=== PATIENT | female | born 1950 | race Asian ===

== ENCOUNTER 2016-10-21 06:05 | Inpatient (IN) | payer MEDICAID, OTHER ==
[2016-10-21] VITALS (20 sets, daily range): BP systolic 103–143; BP diastolic 55–75; PULSE 55–88; RESP 15–20; Ht 157.5 cm; Wt 57.7 kg
[~2016-10-21] VITALS: Ht 157.5 cm; Wt 57.7 kg
[2016-10-21] MEDS ORDERED: CEFAZOLIN 1 GM INJ ONE (07:00)
--- NOTE | 2016-10-21 07:59 | HPN ---
Date/Time of Note Date/Time of Note DATE: 10/21/16 TIME: 07:59 Interval H&P Admission Note Pt. seen H&P reviewed: No system changes KAREN LAUGHLIN MD October 21, 2016 07:59
[2016-10-21] MEDS ORDERED: morphine SULFATE/PF (10 MG/10 ML) INJ ONE (08:05)
[2016-10-21] MEDS ORDERED: FENTAnyl 50 MCG/ML VIAL ONE (08:05)
[2016-10-21] MEDS ORDERED: KETOROLAC 30 MG INJ ONE (08:05)
[2016-10-21] MEDS ORDERED: ONDANSETRON 4 MG INJ ONE (08:05)
[2016-10-21] MEDS ORDERED: ROPIVACAINE 0.5 % 30 ML VIAL ONE (08:05)
[2016-10-21] MEDS ORDERED: MIDAZOLAM 1 MG/ML 2 ML INJ ONE (08:05)
[2016-10-21] MEDS ORDERED: PROPOFOL 100 ML ONE ×2 (08:05→10:48)
[2016-10-21] MEDS ORDERED: DEXAMETHASONE 4 MG/ML 1 ML INJ ONE (08:05)
[2016-10-21] MEDS ORDERED: TRANEXAMIC ACID 580 MG in SOD CHLORIDE 0.9% 100 ML IV ONE ×4 (09:00)
[2016-10-21] MEDS ORDERED: POLYMYXIN/BACITRACIN 1L IRRIG IRR ONE (09:07)
[2016-10-21] MEDS ORDERED: POLYMYXIN B 500000 UNIT INJ IRR ONE (09:08)
[2016-10-21] MEDS ORDERED: BACITRACIN 50000 UNITS INJ IRR ONE (09:08)
[2016-10-21] MEDS ORDERED: hydrALAzine 20 MG INJ IV PRN (09:30)
[2016-10-21] MEDS ORDERED: NALOXONE (0.4 MG/ML) INJ IV PRN ×2 (09:30→11:00)
[2016-10-21] MEDS ORDERED: LABETALOL HCL 20MG INJ IV PRN (09:30)
[2016-10-21] MEDS ORDERED: KETOROLAC 30 MG INJ IV PRN (09:30)
[2016-10-21] MEDS ORDERED: MIDAZOLAM 1 MG/ML 2 ML INJ IV PRN (09:30)
[2016-10-21] MEDS ORDERED: EPHEDrine SULFATE 50 MG/5 ML SYG IV PRN (09:30)
[2016-10-21] MEDS ORDERED: HYDROmorphONE (0.2 MG/ML) 10ML SYG IV PRN ×3 (09:30)
[2016-10-21] MEDS ORDERED: FENTAnyl 50 MCG/ML VIAL IV PRN ×3 (09:30)
[2016-10-21] MEDS ORDERED: DIPHENHYDRAMINE 50 MG INJ IV PRN ×2 (09:30)
[2016-10-21] MEDS ORDERED: ONDANSETRON 4 MG INJ IV PRN ×2 (09:30)
[2016-10-21] MEDS ORDERED: NALBUPHINE HCL (10 MG/1 ML) INJ IV PRN (09:30)
[2016-10-21] MEDS ORDERED: HYDROmorphONE 1 MG/ML SYG IV PRN ×2 (09:30)
[2016-10-21] MEDS ORDERED: TRIMETHOBENZAMIDE 100 MG/ML VIAL IM PRN ×2 (09:30)
[2016-10-21] MEDS ORDERED: ZOLPIDEM 5 MG TAB PO PRN (09:30)
[2016-10-21] MEDS ORDERED: MEPERIDINE 25 MG INJ IV PRN (09:30)
[2016-10-21] MEDS ORDERED: ALBUMIN HUMAN 5% 250 ML ONE (09:57)
[2016-10-21] MEDS ORDERED: MAGNESIUM HYDROXIDE 30ML CUP PO PRN (11:00)
[2016-10-21] MEDS ORDERED: SENNA/DOCUSATE NA (8.6MG/50MG) TAB PO PRN (11:00)
[2016-10-21] MEDS ORDERED: morphine 2 MG INJ IV PRN (11:00)
[2016-10-21] MEDS ORDERED: CEFAZOLIN 1 GM/50 ML (PMX) 50 ML IVPB ONE (11:18)
[2016-10-21] MEDS: CEFAZOLIN 1 GM/50 ML (PMX) 50 ML IVPB SCH ×2 (11:28→18:41)
--- NOTE | 2016-10-21 11:29 | OPR ---
DATE OF OPERATION: 10/21/2016 PREOPERATIVE DIAGNOSIS: Right knee osteoarthritis. POSTOPERATIVE DIAGNOSIS: Right knee osteoarthritis. PROCEDURE: Right total knee replacement. SURGEON: Gerardo Rojas MD SAMPLE SEWER: HOLLY Benz ANESTHESIA: Spinal anesthetic with an adductor canal block anesthesia. ESTIMATED BLOOD LOSS: 150 mL. IMPLANTS USED: Zainab Triathlon implants, femur size 2, tibia size 2, asymmetric 29 patella, and a 16 mm all polyethylene insert. INDICATIONS FOR PROCEDURE: Ms. Teodora Trivedi is a 65-year-old female who has had progressive pain in the right knee. She has failed nonoperative treatment and now presents for the above listed electi ve procedure. The risks and benefits were discussed with the patient, risks including, but not limi ian to infection, bleeding, blood clots, loosening, fracture or dislocation, knee stiffness, nerve d amage, blood vessel damage, along with other medical, anesthetic and surgical complications were dis cussed. Informed consent was obtained. DESCRIPTION OF PROCEDURE: The patient's correct extremity was identified in the preoperative area. She was brought back to the operating room where she had spinal anesthetic. She had sedation. She had a Luna catheter placed. All bony prominences were adequately padded. The right lower extremi ty was prepped and draped in standard sterile manner. A time out was performed. I did not use a to urniquet for this case. An anterior incision was used. I went through skin and subcutaneous tissue , made a medial parapatellar arthrotomy. I then obtained adequate hemostasis. I flexed the knee, m tay an entry hole in the distal femur, and put my distal femoral cutting guide in the distal 8 mm of the distal femur. I then marked for the secondary cutting guide at 3 degrees of external rotation and proceeded to make my anterior and posterior chamfer cuts. I then turned my attention to the tib ia using an extramedullary alignment guide and pinned it at the appropriate level. I made my tibial cut. I then checked the flexion and extension gaps, they were symmetric with a 16 insert. At this point, I trialed a size 2 femur, size 2 tibia, and a 16 insert. The knee went from full extension to full flexion with just a joggle, opening with varus and valgus stress. At this point, I turned m y attention to the patella. I checked the thickness of the patella. I used an over the top ____ cu tting guide, cut the patella to the appropriate thickness, and an asymmetric 29 patella was used. P EG holes were made. The patellar trial was put and patella tracked well without any external pressu re. I marked the rotation of the tibia. I made the peg holes through the femoral trial. I punched the tibia. I took out my trial components, thoroughly irrigated the bony surfaces, and dried them with a lap sponge. I then cemented a size 2 tibia and size 2 femur, and an asymmetric 29 patella. A trial insert was placed until the cement hardened. After the cement hardened, I took out the tria l insert, impacted a 60 mm all poly insert. I thoroughly irrigated the knee joint. The knee was co mpletely dry at the end of the case. I did not use a drain. The medial parapatellar arthrotomy was closed with #1 Vicryl, subcutaneous tissue with 2-0 Vicryl, skin with macario. The patient's foot was warm with a 2+ dorsalis pedis pulse at the end of the case. Dictated By: GERARDO ROJAS MD, RA/MIGUELANGEL Conf#: [id number] DID#: [id number]
[2016-10-21] MEDS ORDERED: DOCUSATE SODIUM 100 MG CAP PO ONE (11:30)
[2016-10-21 11:53] LABS: ADD SCAN DIFF NO
[2016-10-21 12:10] LABS: BASOPHILS % 0.4 % (0.0-2.0); EOSINOPHILS # 0.1 10^3/ul (0.0-0.5); EOSINOPHILS % 1.6 % (0.0-7.0); HEMOGLOBIN 9.4 g/dl (12.0-16.0); LYMPHOCYTES # 1.4 10^3/ul (0.8-2.9); LYMPHOCYTES % 20.6 % (15.0-51.0); MEAN CORPUSCULAR HEMOGLOBIN 25.8 pg (29.0-33.0); MEAN CORPUSCULAR HGB CONC 30.3 g/dl (32.0-37.0); MEAN CORPUSCULAR VOLUME 84.9 fl (82.0-101.0); MEAN PLATELET VOLUME 10.9 fl (7.4-10.4); MONOCYTE # 0.1 10^3/ul (0.3-0.9); MONOCYTES % 1.8 % (0.0-11.0); NEUTROPHIL # 5.1 10^3/ul (1.6-7.5); NEUTROPHILS % 74.7 % (39.0-77.0); PLATELET COUNT 207 10^3/UL (140-415); RED BLOOD COUNT 3.65 10^6/ul (4.20-5.40); RED CELL DISTRIBUTION WIDTH 13.5 % (11.5-14.5); WHITE BLOOD COUNT 6.8 10^3/ul (4.8-10.8)
--- NOTE | 2016-10-21 12:16 | RADRPT ---
PROCEDURE: XR Knee. CLINICAL INDICATION: Postoperative evaluation TECHNIQUE: 2 images of the right knee are available for review. COMPARISON: None available FINDINGS: There is a right knee total arthroplasty in anatomic alignment. There is anterior soft tissue swell ing and soft tissue gas with skin macario. There is no evidence of acute fracture. IMPRESSION: Recent right knee total arthroplasty as above. RPTAT: [facility] .Seth Scott MD, MD Date Time Electronically viewed and signed by .Seth Scott MD, on 10/21/2016 12:16 .K/
[2016-10-21 12:22] LABS: POTASSIUM 3.5 mmol/L (3.5-5.1)
[2016-10-21 12:24] LABS: CREATININE 0.68 mg/dl (0.44-1.00)
[2016-10-21 12:25] LABS: CALCIUM 8.2 mg/dl (8.4-10.2)
[2016-10-21] MEDS: ONDANSETRON 4 MG INJ IV SCH ×3 (12:47→22:36)
[2016-10-21] MEDS: SOD CHLORIDE 0.45% 1,000 ML IV SCH (16:56)
[2016-10-21] MEDS: ACETAMINOPHEN 500 MG TAB PO PRN (18:52)
[2016-10-22] VITALS: BP 113/61; PULSE 71; RESP 18
[2016-10-22] MEDS: CEFAZOLIN 1 GM/50 ML (PMX) 50 ML IVPB SCH (02:12)
--- NOTE | 2016-10-22 03:15 | HP ---
DATE OF ADMISSION: 10/21/2016 CHIEF COMPLAINT AND HISTORY OF PRESENT ILLNESS: The patient is a 65-year-old female with a known hi story of right knee osteoarthritis, failed conservative treatment, was seen by Dr. Rojas as an o utpatient and recommended surgery. The patient was admitted today and underwent right total knee re placement. The patient postoperatively did vomit twice but denies any abdominal pain, no reported c hest pain. No reported shortness of breath, no reported chest congestion. The patient is currently awake, alert, and feels that she is feeling better now. The patient does not have any fever or chi lls postoperative pain is well controlled. The patient is being admitted for further evaluation and management. PAST SURGICAL HISTORY: Patient is status post right knee surgery after she fell off a horse 40 year s ago. SOCIAL HISTORY: No smoking, no alcohol. FAMILY HISTORY: Noncontributory. MEDICATIONS PRIOR TO ADMISSION: 1. Tylenol. 2. Nonsteroidal anti-inflammatory medications. PHYSICAL EXAMINATION: GENERAL: The patient is conscious, awake, alert. VITAL SIGNS: Temperature 97.6, pulse 75, respirations 17, blood pressure 138/70, O2 saturation 98% on room air. HEENT: No eye discharge or redness. Extraocular movement intact. Oropharynx clear. NECK: No mass. CHEST: Fairly clear. CARDIOVASCULAR: S1, S2 normal. No murmur. ABDOMEN: Soft, nondistended, nontender. EXTREMITIES: No pedal edema. Pedal pulses palpable. SKIN: Without acute rash. NEUROLOGIC: The patient is awake, alert. LABORATORY DATA: Sodium 142, potassium 3.9, BUN 17, creatinine 0.8, glucose 92. Liver enzymes norm al. Coagulation profile normal. WBC 9.7, hemoglobin 11.5, platelet 272,000. EKG normal sinus rhyt hm. Chest x-ray clear. Preop chest x-ray unremarkable. IMPRESSION: Right knee osteoarthritis status post right total knee arthroplasty. PLAN: Patient admitted on medical floor. Patient will be given IV cefazolin q.8 hours x3 doses as per protocol. The patient will be given IV fluid and will be given Tylenol, oxycodone and IV morphi ne for pain control, depending upon the severity. The patient will have heparin for DVT prophylaxis . We will continue to follow her closely. Followup labs postoperatively revealed hemoglobin of 9.4 . Chemistry was unremarkable. Further postop Will continue to follow her from a medical sta ndpoint. Dictated By: MARIA FOWLER/MIGUELANGEL Conf#: [id number] DID#: [id number]
[2016-10-22 04:52] VITALS: BP 106/56; RESP 20
[2016-10-22] MEDS: ONDANSETRON 4 MG INJ IV SCH (05:00)
[2016-10-22 05:09] LABS: ADD SCAN DIFF NO
[2016-10-22 05:13] LABS: BASOPHILS % 0.1 % (0.0-2.0); EOSINOPHILS % 0.1 % (0.0-7.0); HEMATOCRIT 27.5 % (37.0-47.0); HEMOGLOBIN 8.8 g/dl (12.0-16.0); LYMPHOCYTES # 1.8 10^3/ul (0.8-2.9); LYMPHOCYTES % 16.1 % (15.0-51.0); MEAN CORPUSCULAR HEMOGLOBIN 26.3 pg (29.0-33.0); MEAN CORPUSCULAR VOLUME 82.1 fl (82.0-101.0); MEAN PLATELET VOLUME 10.9 fl (7.4-10.4); MONOCYTES % 8.6 % (0.0-11.0); NEUTROPHIL # 8.3 10^3/ul (1.6-7.5); NEUTROPHILS % 74.6 % (39.0-77.0); PLATELET COUNT 198 10^3/UL (140-415); RED BLOOD COUNT 3.35 10^6/ul (4.20-5.40); RED CELL DISTRIBUTION WIDTH 13.2 % (11.5-14.5); WHITE BLOOD COUNT 11.2 10^3/ul (4.8-10.8)
[2016-10-22 05:44] LABS: INR 1.09; PROTIME 14.1 Sec (12.2-14.2); PT RATIO 1.1
[2016-10-22 05:48] LABS: CALCIUM 8.7 mg/dl (8.4-10.2); CREATININE 0.75 mg/dl (0.44-1.00)
[2016-10-22] MEDS: SOD CHLORIDE 0.45% 1,000 ML IV SCH ×2 (06:34→19:10)
[2016-10-22 07:00] VITALS: BP 110/57; RESP 20
[2016-10-22] MEDS: ASPIRIN (EC) 325 MG TAB PO SCH (08:57)
[2016-10-22] MEDS: DOCUSATE SODIUM 100 MG CAP PO SCH ×2 (08:57→20:49)
--- NOTE | 2016-10-22 12:38 | PN ---
Date/Time of Note Date/Time of Note DATE: 10/22/16 TIME: 12:34 Assessment/Plan Lines/Catheters IV Catheter Type (from Nrsg): Peripheral IV Luna in Place (from Nrsg): Yes Assessment/Plan Assessment/Plan POD 1 s/p R TKA Stable Patient had nausea yesterday but she feels better now Pain control On Aspirin and SCD's for DVT prophylaxis PT for gait training and CPM re check H/H tomorrow. Discharge planning Subjective 24 Hr Interval Summary Had nausea and vomiting yesterday. Has cleared today. Worked with PT today. Exam/Review of Systems Vital Signs Vitals Vital Signs Date Time Temp Pulse Resp B/P Pulse Ox O2 Delivery O2 Flow Rate FiO2 10/22/16 07:00 98.5 63 20 110/57 98 10/22/16 00:00 Room Air 10/21/16 11:00 2.0 Intake and Output 10/21/16 10/21/16 10/22/16 15:00 23:00 07:00 Intake Total 3300 ml 675 ml 1200 ml Output Total 1000 ml 480 ml 2300 ml Balance 2300 ml 195 ml -1100 ml Exam Free Text/Dictation Right LE Thigh and calf soft and non tender Foot warm and well perfused. Intact motor and sensory function in foot Dressing c/d/i Results Result Diagram: 10/22/16 0438 10/22/16 0438 KAREN LAUGHLIN MD October 22, 2016 12:38
--- NOTE | 2016-10-22 12:40 | PDOCDIS ---
Discharge Instructions CONDITION Patient Condition: Good HOME CARE INSTRUCTIONS: Diet Instructions: RegularSpecial Diet: regular FOLLOW UP/APPOINTMENTS Appointments Dr. Karen Laughlin in 2 weeks OTHER ORDERS: Other Orders: CPM for home use. 0-90 degrees twice a day. Elevated toilet seat Front wheel walker KAREN LAUGHLIN MD October 22, 2016 12:40
[2016-10-22] MEDS: oxyCODONE 5 MG TAB PO PRN ×2 (13:42→19:18)
[2016-10-22 14:00] VITALS: BP 128/72; PULSE 74; RESP 18
--- NOTE | 2016-10-22 14:48 | PN ---
Date/Time of Note Date/Time of Note DATE: 10/22/16 TIME: 14:47 Assessment/Plan VTE Prophylaxis VTE Prophylaxis Intervention: other Lines/Catheters IV Catheter Type (from Nrsg): Peripheral IV Urinary Cath still in place: Yes Assessment/Plan Assessment/Plan Right knee osteoarthritis status post right total knee arthroplasty. Subjective 24 Hr Interval Summary Musculoskeletal: bone/joint pain Exam/Review of Systems Vital Signs Vitals Vital Signs Date Time Temp Pulse Resp B/P Pulse Ox O2 Delivery O2 Flow Rate FiO2 10/22/16 07:00 98.5 63 20 110/57 98 10/22/16 00:00 Room Air 10/21/16 11:00 2.0 Intake and Output 10/21/16 10/21/16 10/22/16 15:00 23:00 07:00 Intake Total 3300 ml 675 ml 1200 ml Output Total 1000 ml 480 ml 2300 ml Balance 2300 ml 195 ml -1100 ml Exam Respiratory: clear to auscultation Cardiovascular: nl pulses Gastrointestinal: non-tender, soft Musculoskeletal: nl extremities to inspection Extremities: normal pulses Neurological: nl speech Lymph: nontender Results Result Diagram: 10/22/16 0438 10/22/16 0438 Results 24 hrs Laboratory Tests Test 10/22/16 04:38 White Blood Count 11.2 #H Red Blood Count 3.35 L Hemoglobin 8.8 L Hematocrit 27.5 L Mean Corpuscular Volume 82.1 Mean Corpuscular Hemoglobin 26.3 L Mean Corpuscular Hemoglobin Concent 32.0 Red Cell Distribution Width 13.2 Platelet Count 198 Mean Platelet Volume 10.9 H Neutrophils % 74.6 Lymphocytes % 16.1 Monocytes % 8.6 Eosinophils % 0.1 Basophils % 0.1 Nucleated Red Blood Cells % 0.0 Neutrophils # 8.3 H Lymphocytes # 1.8 Monocytes # 1.0 H Eosinophils # 0.0 Basophils # 0.0 Nucleated Red Blood Cells # 0.0 Prothrombin Time 14.1 Prothrombin Time Ratio 1.1 INR International Normalized Ratio 1.09 Sodium Level 138 Potassium Level 4.0 Chloride Level 106 Carbon Dioxide Level 27 Anion Gap 9 Blood Urea Nitrogen 9 Creatinine 0.75 Glucose Level 117 Calcium Level 8.7 Medications Medications Current Medications Oxycodone HCl (Roxicodone) 10 mg Q3H PRN PO PAIN LEVEL 4-7; Start 10/21/16 at 11:00 Oxycodone HCl (Roxicodone) 5 mg Q3H PRN PO PAIN LEVEL 1-3 Last administered on 10/22/16 13:42; Admin Dose 5 MG; Start 10/21/16 at 11:00 Aspirin (Ecotrin) 325 mg AM PO Last administered on 10/22/16 08:57; Admin Dose 325 MG; Start 10/22/16 at 09:00 Docusate Sodium (Colace) 200 mg BID PO Last administered on 10/22/16 08:57; Admin Dose 200 MG; Start 10/22/16 at 09:00; Stop 10/25/16 at 08:59 Senna/Docusate Sodium (Senokot-S) 2 tab BID PRN PO CONSTIPATION; Start at 11:00 Magnesium Hydroxide (Milk Of Mag) 30 ml HS PRN PO CONSTIPATION; Start 10/21/16 at 11:00 Naloxone HCl (Narcan) 0.2 mg Q2M PRN IV DECREASED REPIRATORY RATE; Start at 11:00 Morphine Sulfate 2 mg 2 mg Q2H PRN IV PAIN; Start 10/21/16 at 11:00 Sodium Chloride (1/2 NS) 1,000 ml @ 75 mls/hr [id number] IV Last administered on 10/22/16 06:34; Admin Dose 75 MLS/HR; Start 10/21/16 at 16:30 Acetaminophen (Tylenol Tab) 500 mg Q4H PRN PO PAIN AND OR ELEVATED TEMP Last administered on 10/21/16 18:52; Admin Dose 500 MG; Start 10/21/16 at 18:00 CARMELO FRIAS October 22, 2016 14:48
[2016-10-22 19:43] VITALS: BP 140/90; PULSE 90; RESP 18
[2016-10-23] MEDS: ACETAMINOPHEN 500 MG TAB PO PRN (05:26)
[2016-10-23 08:18] VITALS: BP 126/81; RESP 16
[2016-10-23] MEDS: SOD CHLORIDE 0.45% 1,000 ML IV SCH ×2 (08:30→21:50)
[2016-10-23 09:07] LABS: ADD SCAN DIFF NO
[2016-10-23 09:12] LABS: BASOPHIL # 0.1 10^3/ul (0.0-0.1); BASOPHILS % 0.4 % (0.0-2.0); EOSINOPHILS # 0.1 10^3/ul (0.0-0.5); EOSINOPHILS % 0.4 % (0.0-7.0); HEMATOCRIT 31.9 % (37.0-47.0); LYMPHOCYTES # 2.4 10^3/ul (0.8-2.9); LYMPHOCYTES % 19.1 % (15.0-51.0); MEAN CORPUSCULAR HEMOGLOBIN 25.4 pg (29.0-33.0); MEAN CORPUSCULAR HGB CONC 31.3 g/dl (32.0-37.0); MEAN CORPUSCULAR VOLUME 81.2 fl (82.0-101.0); MEAN PLATELET VOLUME 10.9 fl (7.4-10.4); MONOCYTE # 1.2 10^3/ul (0.3-0.9); MONOCYTES % 9.8 % (0.0-11.0); NEUTROPHIL # 8.7 10^3/ul (1.6-7.5); NEUTROPHILS % 69.8 % (39.0-77.0); PLATELET COUNT 226 10^3/UL (140-415); RED BLOOD COUNT 3.93 10^6/ul (4.20-5.40); RED CELL DISTRIBUTION WIDTH 13.3 % (11.5-14.5); WHITE BLOOD COUNT 12.5 10^3/ul (4.8-10.8)
[2016-10-23 09:30] LABS: INR 1.12; PROTIME 14.4 Sec (12.2-14.2); PT RATIO 1.1
[2016-10-23 09:37] LABS: POTASSIUM 3.1 mmol/L (3.5-5.1)
[2016-10-23 09:39] LABS: CREATININE 0.66 mg/dl (0.44-1.00)
[2016-10-23 09:40] LABS: CALCIUM 8.7 mg/dl (8.4-10.2)
[2016-10-23] MEDS: ASPIRIN (EC) 325 MG TAB PO SCH (09:48)
[2016-10-23] MEDS: DOCUSATE SODIUM 100 MG CAP PO SCH ×2 (09:48→20:25)
[2016-10-23] MEDS: oxyCODONE 5 MG TAB PO PRN ×2 (12:50→20:25)
--- NOTE | 2016-10-23 16:33 | PN ---
Date/Time of Note Date/Time of Note DATE: 10/23/16 TIME: 16:30 Assessment/Plan Lines/Catheters IV Catheter Type (from Nrsg): Saline Lock Urinary Cath still in place: Yes Assessment/Plan Assessment/Plan - Right knee osteoarthritis - status post right total knee arthroplasty. YOHANA Gudino Subjective 24 Hr Interval Summary Respiratory: no complaints Cardiovascular: no complaints Gastrointestinal: no complaints Musculoskeletal: no complaints Skin: no complaints Exam/Review of Systems Vital Signs Vitals Vital Signs Date Time Temp Pulse Resp B/P Pulse Ox O2 Delivery O2 Flow Rate FiO2 10/23/16 08:18 99.0 75 16 126/81 99 10/22/16 19:43 Room Air 10/21/16 11:00 2.0 Intake and Output 10/22/16 10/22/16 10/23/16 14:59 22:59 06:59 Intake Total 2150 ml Output Total 1200 ml Balance 950 ml Exam Constitutional: alert Respiratory: clear to auscultation Cardiovascular: nl pulses Gastrointestinal: non-tender, soft Musculoskeletal: other Results Result Diagram: 10/23/16 0830 10/23/16 0830 Results 24 hrs Laboratory Tests Test 10/23/16 08:30 White Blood Count 12.5 H Red Blood Count 3.93 L Hemoglobin 10.0 L Hematocrit 31.9 L Mean Corpuscular Volume 81.2 L Mean Corpuscular Hemoglobin 25.4 L Mean Corpuscular Hemoglobin Concent 31.3 L Red Cell Distribution Width 13.3 Platelet Count 226 Mean Platelet Volume 10.9 H Neutrophils % 69.8 Lymphocytes % 19.1 Monocytes % 9.8 Eosinophils % 0.4 Basophils % 0.4 Nucleated Red Blood Cells % 0.0 Neutrophils # 8.7 H Lymphocytes # 2.4 Monocytes # 1.2 H Eosinophils # 0.1 Basophils # 0.1 Nucleated Red Blood Cells # 0.0 Prothrombin Time 14.4 H Prothrombin Time Ratio 1.1 INR International Normalized Ratio 1.12 Sodium Level 132 L Potassium Level 3.1 L Chloride Level 93 #L Carbon Dioxide Level 28 Anion Gap 14 Blood Urea Nitrogen 5 L Creatinine 0.66 Glucose Level 116 Calcium Level 8.7 Medications Medications Current Medications Oxycodone HCl (Roxicodone) 10 mg Q3H PRN PO PAIN LEVEL 4-7 Last administered on 10/22/16t 19:18; Admin Dose 10 MG; Start 10/21/16 at 11:00 Oxycodone HCl (Roxicodone) 5 mg Q3H PRN PO PAIN LEVEL 1-3 Last administered on 10/23/16 12:50; Admin Dose 5 MG; Start 10/21/16 at 11:00 Aspirin (Ecotrin) 325 mg AM PO Last administered on 10/23/16 09:48; Admin Dose 325 MG; Start 10/22/16 at 09:00 Docusate Sodium (Colace) 200 mg BID PO Last administered on 10/23/16 09:48; Admin Dose 200 MG; Start 10/22/16 at 09:00; Stop 10/25/16 at 08:59 Senna/Docusate Sodium (Senokot-S) 2 tab BID PRN PO CONSTIPATION; Start at 11:00 Magnesium Hydroxide (Milk Of Mag) 30 ml HS PRN PO CONSTIPATION; Start 10/21/16 at 11:00 Naloxone HCl (Narcan) 0.2 mg Q2M PRN IV DECREASED REPIRATORY RATE; Start at 11:00 Morphine Sulfate 2 mg 2 mg Q2H PRN IV PAIN; Start 10/21/16 at 11:00 Sodium Chloride (1/2 NS) 1,000 ml @ 75 mls/hr [id number] IV Last administered on 10/22/16 06:34; Admin Dose 75 MLS/HR; Start 10/21/16 at 16:30 Acetaminophen (Tylenol Tab) 500 mg Q4H PRN PO PAIN AND OR ELEVATED TEMP Last administered on 10/23/16 05:26; Admin Dose 500 MG; Start 10/21/16 at 18:00 CARMELO FRIAS October 23, 2016 16:33
[2016-10-23 20:01] VITALS: BP 130/58; RESP 18
[2016-10-23] MEDS ORDERED: POTASSIUM CHLORIDE (SR) 20 MEQ TAB PO STA (20:09)
[2016-10-24] MEDS: ACETAMINOPHEN 500 MG TAB PO PRN ×2 (00:50→05:40)
[2016-10-24] MEDS: oxyCODONE 5 MG TAB PO PRN ×3 (00:50→21:04)
[2016-10-24 05:04] LABS: ADD SCAN DIFF NO
[2016-10-24 05:09] LABS: BASOPHIL # 0.1 10^3/ul (0.0-0.1); BASOPHILS % 0.5 % (0.0-2.0); EOSINOPHILS # 0.2 10^3/ul (0.0-0.5); EOSINOPHILS % 2.2 % (0.0-7.0); HEMATOCRIT 29.5 % (37.0-47.0); HEMOGLOBIN 9.3 g/dl (12.0-16.0); LYMPHOCYTES # 3.3 10^3/ul (0.8-2.9); LYMPHOCYTES % 29.8 % (15.0-51.0); MEAN CORPUSCULAR HEMOGLOBIN 25.5 pg (29.0-33.0); MEAN CORPUSCULAR HGB CONC 31.5 g/dl (32.0-37.0); MEAN CORPUSCULAR VOLUME 80.8 fl (82.0-101.0); MEAN PLATELET VOLUME 10.9 fl (7.4-10.4); MONOCYTE # 1.1 10^3/ul (0.3-0.9); MONOCYTES % 10.3 % (0.0-11.0); NEUTROPHIL # 6.3 10^3/ul (1.6-7.5); PLATELET COUNT 217 10^3/UL (140-415); RED BLOOD COUNT 3.65 10^6/ul (4.20-5.40); RED CELL DISTRIBUTION WIDTH 13.5 % (11.5-14.5); WHITE BLOOD COUNT 11.1 10^3/ul (4.8-10.8)
[2016-10-24 05:20] LABS: POTASSIUM 3.7 mmol/L (3.5-5.1)
[2016-10-24 05:22] LABS: CREATININE 0.72 mg/dl (0.44-1.00)
[2016-10-24 05:23] LABS: CALCIUM 8.4 mg/dl (8.4-10.2)
[2016-10-24 08:31] VITALS: BP 112/58; RESP 16
[2016-10-24 08:34] VITALS: BP 137/61; RESP 20
[2016-10-24] MEDS: ASPIRIN (EC) 325 MG TAB PO SCH (09:27)
[2016-10-24] MEDS: DOCUSATE SODIUM 100 MG CAP PO SCH ×2 (09:27→21:03)
--- NOTE | 2016-10-24 10:07 | PN ---
Date/Time of Note Date/Time of Note DATE: 10/24/16 TIME: 10:06 Assessment/Plan Lines/Catheters IV Catheter Type (from Nrs): Saline Lock Luna in Place (from Nrsg): Yes Assessment/Plan Assessment/Plan POD 3 Has had low grade temps. Probably atelectasis. Patient not using IS. Will instruct on use. Continue CPM, Gait training with PT Aspirin and SCDs for DVT prophylaxis Discharge planning, home today. Subjective 24 Hr Interval Summary No complaints. Exam/Review of Systems Vital Signs Vitals Vital Signs Date Time Temp Pulse Resp B/P Pulse Ox O2 Delivery O2 Flow Rate FiO2 10/24/16 08:34 98.4 82 20 137/61 95 10/22/16 19:43 Room Air 10/21/16 11:00 2.0 Intake and Output 10/23/16 10/23/16 10/24/16 15:00 23:00 07:00 Intake Total 820 ml 900 ml Output Total 650 ml Balance 170 ml 900 ml Exam Free Text/Dictation R Knee Incision c/d/i. No erythema Calf soft and non tender Foot warm and well perfused. Results Result Diagram: 10/24/16 0425 10/24/16 0425 KAREN LAUGHLIN MD October 24, 2016 10:07
[2016-10-24] MEDS: SOD CHLORIDE 0.45% 1,000 ML IV SCH (11:10)
[2016-10-24] MEDS ORDERED: SOD CHLORIDE 0.9% 1,000 ML IV SCH (12:00)
--- NOTE | 2016-10-24 12:52 | RADRPT ---
PROCEDURE: Chest Radiograph. CLINICAL INDICATION: Cough. TECHNIQUE: Single frontal chest radiograph. COMPARISON: None available FINDINGS: The cardiomediastinal silhouette is within normal limits. No infiltrate or effusion is seen. Th e bones are intact. IMPRESSION: 1. Unremarkable chest radiograph. RPTAT: KK .Raza Poon MD, MD Date Time Electronically viewed and signed by .Raza Poon MD, on 10/24/2016 12:52 .B/
[2016-10-24 13:31] LABS: ADD UMIC NO; URINE BILIRUBIN (Dip) NEGATIVE (NEGATIVE); URINE BLOOD (Dip) NEGATIVE (NEGATIVE); URINE COLOR LT. YELLOW (YELLOW); URINE GLUCOSE (Dip) NEGATIVE (NEGATIVE); URINE KETONES (Dip) NEGATIVE (NEGATIVE); URINE LEUKOCYTE ESTERASE (Dip) NEGATIVE (NEGATIVE); URINE NITRITE (Dip) NEGATIVE (NEGATIVE); URINE TOTAL PROTEIN (Dip) NEGATIVE (NEGATIVE); URINE UROBILINOGEN (Dip) 0.2 E.U./dL (0.1-1.0)
--- NOTE | 2016-10-24 18:25 | PN ---
Date/Time of Note Date/Time of Note DATE: 10/24/16 TIME: 18:21 Assessment/Plan VTE Prophylaxis VTE Prophylaxis Intervention: SCD's Lines/Catheters IV Catheter Type (from Nrsg): Saline Lock Central line still needed: Yes Urinary Cath still in place: No Assessment/Plan Assessment/Plan - Right knee osteoarthritis, status post right total knee arthroplasty. Continue physical therapy. Acute rehab evaluation. - Mild hyponatremia, continue IV fluids. Patient's condition and plan of care was discussed with patient's son at the bedside. Further recommendations based on clinical course. Plan of care discussed with Dr. Gudino. Subjective 24 Hr Interval Summary Free Text/Dictation Patient's feel very anxious to walk with physical therapy, tolerates CPM well, continue pain control, continue physical therapy. Exam/Review of Systems Vital Signs Vitals Vital Signs Date Time Temp Pulse Resp B/P Pulse Ox O2 Delivery O2 Flow Rate FiO2 10/24/16 08:34 98.4 82 20 137/61 95 10/22/16 19:43 Room Air 10/21/16 11:00 2.0 Intake and Output 10/23/16 10/23/16 10/24/16 15:00 23:00 07:00 Intake Total 820 ml 900 ml Output Total 650 ml Balance 170 ml 900 ml Exam Constitutional: alert, oriented Psych: anxiety, no complaints Head: atraumatic, normocephalic Eyes: nl conjunctiva ENMT: nl external ears & nose Neck: non-tender, supple Respiratory: clear to auscultation, normal air movement Cardiovascular: nl pulses, regular rate and rhythm Gastrointestinal: non-tender, soft Musculoskeletal: other (Right knee status post surgery) Extremities: normal pulses 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 intact Results Result Diagram: 10/24/16 0425 10/24/16 0425 Results 24 hrs Laboratory Tests Test 10/24/16 04:25 10/24/16 13:10 White Blood Count 11.1 H Red Blood Count 3.65 L Hemoglobin 9.3 L Hematocrit 29.5 L Mean Corpuscular Volume 80.8 L Mean Corpuscular Hemoglobin 25.5 L Mean Corpuscular Hemoglobin Concent 31.5 L Red Cell Distribution Width 13.5 Platelet Count 217 Mean Platelet Volume 10.9 H Neutrophils % 57.0 Lymphocytes % 29.8 Monocytes % 10.3 Eosinophils % 2.2 Basophils % 0.5 Nucleated Red Blood Cells % 0.0 Neutrophils # 6.3 Lymphocytes # 3.3 H Monocytes # 1.1 H Eosinophils # 0.2 Basophils # 0.1 Nucleated Red Blood Cells # 0.0 Sodium Level 129 L Potassium Level 3.7 Chloride Level 95 L Carbon Dioxide Level 25 Anion Gap 13 Blood Urea Nitrogen 8 Creatinine 0.72 Glucose Level 122 Calcium Level 8.4 Urine Color LT. YELLOW Urine Clarity CLEAR Urine pH 6.5 Urine Specific [place] <=1.005 L Urine Ketones NEGATIVE Urine Nitrite NEGATIVE Urine Bilirubin NEGATIVE Urine Urobilinogen 0.2 E.U./dL Urine Leukocyte Esterase NEGATIVE Urine Hemoglobin NEGATIVE Urine Glucose NEGATIVE Urine Total Protein NEGATIVE Medications Medications Current Medications Oxycodone HCl (Roxicodone) 10 mg Q3H PRN PO PAIN LEVEL 4-7 Last administered on 10/24/16 00:50; Admin Dose 10 MG; Start 10/21/16 at 11:00 Oxycodone HCl (Roxicodone) 5 mg Q3H PRN PO PAIN LEVEL 1-3 Last administered on 10/24/16 09:29; Admin Dose 5 MG; Start 10/21/16 at 11:00 Aspirin (Ecotrin) 325 mg AM PO Last administered on 10/24/16 09:27; Admin Dose 325 MG; Start 10/22/16 at 09:00 Docusate Sodium (Colace) 200 mg BID PO Last administered on 10/24/16 09:27; Admin Dose 200 MG; Start 10/22/16 at 09:00; Stop 10/25/16 at 08:59 Senna/Docusate Sodium (Senokot-S) 2 tab BID PRN PO CONSTIPATION; Start at 11:00 Magnesium Hydroxide (Milk Of Mag) 30 ml HS PRN PO CONSTIPATION Last administered on 10/24/16 05:33; Admin Dose 30 ML; Start 10/21/16 at 11:00 Naloxone HCl (Narcan) 0.2 mg Q2M PRN IV DECREASED REPIRATORY RATE; Start at 11:00 Morphine Sulfate 2 mg 2 mg Q2H PRN IV PAIN; Start 10/21/16 at 11:00 Sodium Chloride (1/2 NS) 1,000 ml @ 75 mls/hr [id number] IV Last administered on 10/22/16 06:34; Admin Dose 75 MLS/HR; Start 10/21/16 at 16:30 Acetaminophen 500 mg 500 mg Q4H PRN PO PAIN AND OR ELEVATED TEMP Last administered on 10/24/16 05:40; Admin Dose 500 MG; Start 10/21/16 at 18:00 Sodium Chloride (NS) 1,000 ml @ 100 mls/hr Q10H IV Last administered on 12:30; Admin Dose 100 MLS/HR; Start 10/24/16 at 12:00; Stop 10/24/16 at 20: 30 ANTONIA DUMAS October 24, 2016 18:25
[2016-10-24 21:01] VITALS: BP 129/61; RESP 17
[2016-10-25] MEDS: oxyCODONE 5 MG TAB PO PRN (05:40)
[2016-10-25 05:49] LABS: ADD SCAN DIFF NO
[2016-10-25 05:58] LABS: BASOPHIL # 0.1 10^3/ul (0.0-0.1); BASOPHILS % 0.7 % (0.0-2.0); EOSINOPHILS # 0.3 10^3/ul (0.0-0.5); EOSINOPHILS % 3.9 % (0.0-7.0); HEMATOCRIT 29.7 % (37.0-47.0); HEMOGLOBIN 9.5 g/dl (12.0-16.0); LYMPHOCYTES # 2.6 10^3/ul (0.8-2.9); MEAN CORPUSCULAR HEMOGLOBIN 26.5 pg (29.0-33.0); MEAN CORPUSCULAR VOLUME 82.7 fl (82.0-101.0); MEAN PLATELET VOLUME 10.8 fl (7.4-10.4); MONOCYTE # 0.8 10^3/ul (0.3-0.9); MONOCYTES % 9.6 % (0.0-11.0); NEUTROPHIL # 4.8 10^3/ul (1.6-7.5); NEUTROPHILS % 55.3 % (39.0-77.0); PLATELET COUNT 238 10^3/UL (140-415); RED BLOOD COUNT 3.59 10^6/ul (4.20-5.40); RED CELL DISTRIBUTION WIDTH 13.5 % (11.5-14.5); WHITE BLOOD COUNT 8.7 10^3/ul (4.8-10.8)
[2016-10-25 06:04] LABS: POTASSIUM 4.2 mmol/L (3.5-5.1)
[2016-10-25 06:07] LABS: CREATININE 0.69 mg/dl (0.44-1.00)
[2016-10-25 06:08] LABS: CALCIUM 8.4 mg/dl (8.4-10.2)
[2016-10-25 08:23] VITALS: BP 106/58; RESP 16
[2016-10-25] MEDS: ASPIRIN (EC) 325 MG TAB PO SCH (09:55)
[2016-10-25] MEDS: ACETAMINOPHEN 500 MG TAB PO PRN (10:52)
--- NOTE | 2016-10-25 16:28 | PN ---
Date/Time of Note Date/Time of Note DATE: 10/25/16 TIME: 16:24 Assessment/Plan VTE Prophylaxis VTE Prophylaxis Intervention: SCD's Lines/Catheters IV Catheter Type (from Nrs): Peripheral IV Urinary Cath still in place: No Assessment/Plan Chief Complaint/Hosp Course Patient was able to to make some progress with physical therapy, however still has unsteady gait, pain is adequately controlled, continue physical therapy. Assessment/Plan - Right knee osteoarthritis, status post right total knee arthroplasty. Continue physical therapy. Continue Ecotrin and pain medication as needed. Pending acute rehab evaluation Further recommendations based on clinical course. Plan of care discussed with Dr. Gudino. Problems: Exam/Review of Systems Vital Signs Vitals Vital Signs Date Time Temp Pulse Resp B/P Pulse Ox O2 Delivery O2 Flow Rate FiO2 10/25/16 08:23 98.5 72 16 106/58 95 10/22/16 19:43 Room Air 10/21/16 11:00 2.0 Intake and Output 10/24/16 10/24/16 10/25/16 15:00 23:00 07:00 Intake Total 400 ml 1300 ml Balance 400 ml 1300 ml Exam Constitutional: alert, oriented Psych: anxiety, no complaints Head: atraumatic, normocephalic Eyes: nl conjunctiva ENMT: nl external ears & nose Neck: non-tender, supple Respiratory: clear to auscultation, normal air movement Cardiovascular: nl pulses, regular rate and rhythm Gastrointestinal: non-tender, soft Musculoskeletal: other (Right knee status post surgery) Extremities: normal pulses Neurological: 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 intact Results Result Diagram: 10/25/16 0445 10/25/16444 Results 24 hrs Laboratory Tests Test 10/25/16 04:45 White Blood Count 8.7 # Red Blood Count 3.59 L Hemoglobin 9.5 L Hematocrit 29.7 L Mean Corpuscular Volume 82.7 Mean Corpuscular Hemoglobin 26.5 L Mean Corpuscular Hemoglobin Concent 32.0 Red Cell Distribution Width 13.5 Platelet Count 238 Mean Platelet Volume 10.8 H Neutrophils % 55.3 Lymphocytes % 30.0 Monocytes % 9.6 Eosinophils % 3.9 Basophils % 0.7 Nucleated Red Blood Cells % 0.0 Neutrophils # 4.8 Lymphocytes # 2.6 Monocytes # 0.8 Eosinophils # 0.3 Basophils # 0.1 Nucleated Red Blood Cells # 0.0 Sodium Level 140 Potassium Level 4.2 Chloride Level 104 Carbon Dioxide Level 28 Anion Gap 12 Blood Urea Nitrogen 8 Creatinine 0.69 Glucose Level 109 Calcium Level 8.4 Medications Medications Current Medications Oxycodone HCl (Roxicodone) 10 mg Q3H PRN PO PAIN LEVEL 4-7 Last administered on 10/25/16 05:40; Admin Dose 10 MG; Start 10/21/16 at 11:00 Oxycodone HCl (Roxicodone) 5 mg Q3H PRN PO PAIN LEVEL 1-3 Last administered on 10/24/16 09:29; Admin Dose 5 MG; Start 10/21/16 at 11:00 Aspirin (Ecotrin) 325 mg AM PO Last administered on 10/25/16 09:55; Admin Dose 325 MG; Start 10/22/16 at 09:00 Senna/Docusate Sodium (Senokot-S) 2 tab BID PRN PO CONSTIPATION; Start at 11:00 Magnesium Hydroxide (Milk Of Mag) 30 ml HS PRN PO CONSTIPATION Last administered on 10/24/16 05:33; Admin Dose 30 ML; Start 10/21/16 at 11:00 Naloxone HCl (Narcan) 0.2 mg Q2M PRN IV DECREASED REPIRATORY RATE; Start at 11:00 Morphine Sulfate (morphine) 2 mg Q2H PRN IV PAIN; Start 10/21/16 at 11:00 Acetaminophen (Tylenol Tab) 500 mg Q4H PRN PO PAIN AND OR ELEVATED TEMP Last administered on 10/25/16 10:52; Admin Dose 500 MG; Start 10/21/16 at 18:00 ANTONIA DUMAS October 25, 2016 16:27
[2016-10-25 20:40] VITALS: BP 141/62; RESP 20
[2016-10-26] MEDS: ACETAMINOPHEN 500 MG TAB PO PRN (00:21)
[2016-10-26 05:56] LABS: ADD SCAN DIFF NO
[2016-10-26 06:04] LABS: BASOPHIL # 0.1 10^3/ul (0.0-0.1); BASOPHILS % 0.7 % (0.0-2.0); EOSINOPHILS # 0.6 10^3/ul (0.0-0.5); EOSINOPHILS % 6.2 % (0.0-7.0); HEMATOCRIT 30.3 % (37.0-47.0); HEMOGLOBIN 9.7 g/dl (12.0-16.0); LYMPHOCYTES # 3.2 10^3/ul (0.8-2.9); LYMPHOCYTES % 35.3 % (15.0-51.0); MEAN CORPUSCULAR HEMOGLOBIN 26.4 pg (29.0-33.0); MEAN CORPUSCULAR VOLUME 82.3 fl (82.0-101.0); MEAN PLATELET VOLUME 10.2 fl (7.4-10.4); MONOCYTE # 0.7 10^3/ul (0.3-0.9); NEUTROPHIL # 4.5 10^3/ul (1.6-7.5); NEUTROPHILS % 49.4 % (39.0-77.0); PLATELET COUNT 292 10^3/UL (140-415); RED BLOOD COUNT 3.68 10^6/ul (4.20-5.40); RED CELL DISTRIBUTION WIDTH 13.9 % (11.5-14.5)
[2016-10-26 06:32] LABS: POTASSIUM 3.9 mmol/L (3.5-5.1)
[2016-10-26 06:34] LABS: CREATININE 0.61 mg/dl (0.44-1.00)
[2016-10-26 06:35] LABS: CALCIUM 8.7 mg/dl (8.4-10.2)
[2016-10-26 07:50] VITALS: BP 140/81; RESP 19
[2016-10-26] MEDS: ASPIRIN (EC) 325 MG TAB PO SCH (09:59)
--- NOTE | 2016-10-26 12:59 | PN ---
Date/Time of Note Date/Time of Note DATE: 10/26/16 TIME: 12:59 Assessment/Plan Lines/Catheters IV Catheter Type (from Nrs): Saline Lock Luna in Place (from Nrs): No Assessment/Plan Assessment/Plan Patient not progressing well with PT. Recommend consider short Acute Rehab Stay. Exam/Review of Systems Vital Signs Vitals Vital Signs Date Time Temp Pulse Resp B/P Pulse Ox O2 Delivery O2 Flow Rate FiO2 10/26/16 07:50 98.0 76 19 140/81 98 10/22/16 19:43 Room Air Intake and Output 10/25/16 10/25/16 10/26/16 15:00 23:00 07:00 Intake Total 600 ml 640 ml Output Total 400 ml 620 ml Balance 200 ml 20 ml Results Result Diagram: 10/26/16 0450 10/26/16 0450 KAREN LAUGHLIN MD October 26, 2016 12:59
[2016-10-26] MEDS: oxyCODONE 5 MG TAB PO PRN (15:21)
--- NOTE | 2016-10-26 15:58 | PN ---
DATE: 10/26/2016 SUBJECTIVE: Follow up on right knee osteoarthritis status post right total knee arthroplasty. The patient is not progressing well with physical therapy. The patient sometimes does not bear weight o n her feet and also has been feeling depressed. The patient also has been tearful, and I got some m ore history from the patient's son, and Dr. Trivedi. According to him, the patient does have history o f paranoid delusion and depression and in the past has responded well to Zyprexa 2.5 mg b.i.d. The patient did not have any chest pain or shortness of breath. OBJECTIVE: VITAL SIGNS: Stable, afebrile. NECK: No mass. CHEST: Fairly clear. CARDIOVASCULAR: S1, S2 normal. No murmur. ABDOMEN: Soft, nondistended, nontender. EXTREMITIES: No ankle edema. Pedal pulses palpable. SKIN: Without acute rash. LABORATORY DATA: WBC 9, hemoglobin 9.7, platelets 292. Sodium 138, potassium 3.9, BUN 9, creatinin e 0.6. IMPRESSION: 1. Right knee osteoarthritis status post total knee replacement. 2. Depression with paranoid delusion. PLAN: We will start the patient on Zyprexa 2.5 b.i.d. The patient would benefit from acute rehabil itation as she is likely to get more depressed in residential facility and may not participate i n physical therapy at all. The patient has agreed to go to acute rehabilitation, and from there, th e patient will be discharged home. The patient, prior to her surgery, was independent in her ADLs. Dictated By: MARIA FOWLER/MIGUELANGEL Conf#: [id number] DID#: [id number]
[2016-10-26] MEDS ORDERED: OLANZAPINE 2.5 MG TAB PO SCH (16:30)
[2016-10-26] MEDS: OLANZAPINE 2.5 MG TAB PO SCH (20:51)
[2016-10-26 21:13] VITALS: BP 125/58; RESP 20
[2016-10-26] MEDS ORDERED: ZOLPIDEM 5 MG TAB PO PRN (23:00)
[2016-10-27 08:11] VITALS: BP 128/76; RESP 18
[2016-10-27] MEDS: ASPIRIN (EC) 325 MG TAB PO SCH (09:22)
[2016-10-27] MEDS: OLANZAPINE 2.5 MG TAB PO SCH ×2 (09:23→21:05)
[2016-10-27] MEDS: oxyCODONE 5 MG TAB PO PRN (12:43)
--- NOTE | 2016-10-27 16:32 | PN ---
Date/Time of Note Date/Time of Note DATE: 10/27/16 TIME: 16:32 Assessment/Plan VTE Prophylaxis VTE Prophylaxis Intervention: other Lines/Catheters IV [facility]ter Type [facility]from [facility] Saline Lock Urinary Cath still in place: No Assessment/Plan Assessment/Plan 1. Right knee osteoarthritis status post total knee replacement. 2. Depression with paranoid delusion. Exam/Review of Systems Vital Signs Vitals Vital Signs Date Time Temp Pulse Resp B/P Pulse Ox O2 Delivery O2 Flow Rate FiO2 10/27/16 08:11 98.0 70 18 128/76 96 Intake and Output 10/26/16 10/26/16 10/27/16 15:00 23:00 07:00 Intake Total 700 ml 250 ml Output Total 350 ml Balance 700 ml -100 ml Exam Constitutional: alert, oriented, well developed Psych: nl mood/affect Eyes: EOMI, nl sclera Respiratory: clear to auscultation, normal air movement Cardiovascular: nl pulses, regular rate and rhythm Gastrointestinal: non-tender Extremities: normal pulses, other Neurological: nl mental status Skin: other Lymph: nontender Results Result Diagram: 10/26/1644910/26/16449 Medications Medications Current Medications Oxycodone HCl (Roxicodone) 10 mg Q3H PRN PO PAIN LEVEL 4-7 Last administered on 10/26/16 15:21; Admin Dose 5 MG; Start 10/21/16 at 11:00 Oxycodone HCl (Roxicodone) 5 mg Q3H PRN PO PAIN LEVEL 1-3 Last administered on 10/27/16 12:43; Admin Dose 5 MG; Start 10/21/16 at 11:00 Aspirin (Ecotrin) 325 mg AM PO Last administered on 10/27/16 09:22; Admin Dose 325 MG; Start 10/22/16 at 09:00 Senna/Docusate Sodium (Senokot-S) 2 tab BID PRN PO CONSTIPATION Last administered on 10/26/16 09:59; Admin Dose 2 TAB; Start 10/21/16 at 11:00 Magnesium Hydroxide (Milk Of Mag) 30 ml HS PRN PO CONSTIPATION Last administered on 10/24/16 05:33; Admin Dose 30 ML; Start 10/21/16 at 11:00 Naloxone HCl (Narcan) 0.2 mg Q2M PRN IV DECREASED REPIRATORY RATE; Start at 11:00 Morphine Sulfate (morphine) 2 mg Q2H PRN IV PAIN; Start 10/21/16 at 11:00 Acetaminophen (Tylenol Tab) 500 mg Q4H PRN PO PAIN AND OR ELEVATED TEMP Last administered on 10/26/16 00:21; Admin Dose 500 MG; Start 10/21/16 at 18:00 Olanzapine (Zyprexa) 2.5 mg BID PO Last administered on 10/27/16 09:23; Admin Dose 2.5 MG; Start 10/26/16 at 21:00 Zolpidem Tartrate (Ambien) 5 mg HS PRN PO INSOMNIA; Start 10/26/16 at 23:00 CARMELO FRIAS October 27, 2016 16:32
[2016-10-27 19:25] VITALS: BP 115/59; RESP 18
[2016-10-28 05:28] LABS: ADD SCAN DIFF NO
[2016-10-28 05:36] LABS: BASOPHILS % 0.4 % (0.0-2.0); EOSINOPHILS # 0.5 10^3/ul (0.0-0.5); EOSINOPHILS % 4.4 % (0.0-7.0); HEMATOCRIT 31.2 % (37.0-47.0); HEMOGLOBIN 9.9 g/dl (12.0-16.0); LYMPHOCYTES # 2.6 10^3/ul (0.8-2.9); MEAN CORPUSCULAR HEMOGLOBIN 26.5 pg (29.0-33.0); MEAN CORPUSCULAR HGB CONC 31.7 g/dl (32.0-37.0); MEAN CORPUSCULAR VOLUME 83.4 fl (82.0-101.0); MEAN PLATELET VOLUME 9.7 fl (7.4-10.4); MONOCYTE # 0.8 10^3/ul (0.3-0.9); MONOCYTES % 7.2 % (0.0-11.0); NEUTROPHIL # 6.5 10^3/ul (1.6-7.5); NEUTROPHILS % 62.6 % (39.0-77.0); PLATELET COUNT 334 10^3/UL (140-415); RED BLOOD COUNT 3.74 10^6/ul (4.20-5.40); RED CELL DISTRIBUTION WIDTH 13.7 % (11.5-14.5); WHITE BLOOD COUNT 10.4 10^3/ul (4.8-10.8)
[2016-10-28 05:56] LABS: CALCIUM 9.1 mg/dl (8.4-10.2); CREATININE 0.75 mg/dl (0.44-1.00); POTASSIUM 4.1 mmol/L (3.5-5.1)
[2016-10-28 08:13] VITALS: BP 152/74; RESP 16
[2016-10-28] MEDS: OLANZAPINE 2.5 MG TAB PO SCH (09:03)
[2016-10-28] MEDS: ASPIRIN (EC) 325 MG TAB PO SCH (09:03)
[2016-10-28] MEDS ORDERED: OLAN2.5T4 PO (11:45)
[2016-10-28] MEDS ORDERED: ASPI325T32 PO (12:23)
--- NOTE | 2016-10-30 06:38 | DS ---
DATE OF ADMISSION: 10/21/2016 DATE OF DISCHARGE: 10/28/2016 FINAL DIAGNOSES: 1. Right knee osteoarthritis status post right total knee arthroplasty. 2. Depression, paranoia, delusion. HOSPITAL COURSE: The patient is a 65-year-old female with known history of right knee osteoarthriti s, failed conservative treatment. The patient was seen by Dr. Mcneill as an outpatient and recomm ended surgery. The patient would go to the hospital and underwent a right total knee replacement. The patient had nausea and emesis postoperatively; however, denied any fever and chills, and the pat ient was admitted further evaluation and management. The patient was given Roxicodone for pain and was started on aspirin and started on physical therapy. The patient had low grade fever; however, a repeat chest x-ray was unremarkable. The patient was given incentive spirometer. The patient's vi ramin signs include postoperative leukocytosis resolved; however, the patient was resistant to physica l therapy due to depression and paranoid delusion. The patient was started on Zyprexa which the pat ient was taking prescribed previously before by psychiatry; however, was not on it prior to surgery. The patient's surgical site is intact and healing well. The patient also tolerated CPM with no si gnificant pain well. The patient's condition improved; however, the patient's progress with physica l therapy was minimal and the patient ____ to acute rehabilitation center ____. CONDITION ON DISCHARGE: She was medically stable. ACTIVITY: As patient tolerates. DIET: Regular diet. DISCHARGE MEDICATIONS: The patient given prescriptions for: 1. Aspirin. 2. Zyprexa. 3. Roxicodone. 4. Senna 5. Ambien p.r.n. RECOMMENDATIONS: The patient is instructed to follow up with Dr. Mcneill 1 to 2 weeks. Interdisciplinary plan of care was established for this patient. Plan of care was discussed with Dr Vadim Gudino. Dictated By: ANTONIA DUMAS [employer] for MARIA GUDINO MD SR/NTS Conf#: [id number] DID#: [id number]
== END 2016-10-28 19:00 | DRG 470 ==
LOC: REC 06:05 → MS1 11:34
PROVIDERS: ADMIT Specialist; ATTEND Internal Medicine
PROC: 0SRC0J9 Replacement of Right Knee Joint with Synthetic Substitute, Cemented, Open Approach (ICD-10-PCS; principal; 2016-10-21 08:00)
DX: M17.11 Unilateral primary osteoarthritis, right knee (principal); F32.9 Major depressive disorder, single episode, unspecified; F22 Delusional disorders; Z79.82 Long term (current) use of aspirin
CPT/HCPCS: 71010; 73560; 80048; 81003; 85025; 85610; 86850; 86900; 86901; 87081; 87086; 88304; 88311; 97110; 97116; 97163; 97530; J0690; J1100; J1885; J2250; J2274; J2405; J2795; J3010; J7030; P9045